=== PATIENT | female | born 1955 | race African-American/Black ===

== ENCOUNTER 2020-08-03 12:59 | Inpatient (IN) | payer MEDICARE, OTHER ==
[~2020-08-03] VITALS: Ht 157.5 cm; Wt 55.8 kg
[2020-08-03] MEDS ORDERED: ONDANSETRON HCL 4MG/2ML INJ IV STA ×2 (13:30→18:42)
[2020-08-03] MEDS ORDERED: FAMOTIDINE 20MG/2ML VIAL IV STA (13:30)
[2020-08-03 14:40] LABS: BASOPHILS % 0.6 % (0.0-2.0); EOSINOPHILS % 3.6 % (0.0-5.0); HEMATOCRIT. 30.3 % (36.0-48.0); HEMOGLOBIN. 10.3 g/dL (12.0-16.0); LYMPHOCYTES % 23.6 % (20.0-50.0); MEAN CORPUSCULAR HEMOGLOBIN 32.6 pg (28.0-32.0); MEAN CORPUSCULAR VOLUME 95.5 fL (81.0-99.0); MEAN PLATELET VOLUME 6.9 fl (7.4-10.4); MONOCYTES % 8.1 % (2.0-8.0); NEUTROPHILS % 64.1 % (40.0-76.0); PLATELET 434 x1000/uL (130-400); RED BLOOD CELL COUNT 3.17 mill/uL (4.2-5.4); RED CELL DISTRIBUTION WIDTH 20.3 % (11.6-14.6)
[2020-08-03 14:45] LABS: CHLORIDE 110 mEq/L (98-107)
[2020-08-03 14:49] LABS: ETHANOL BLOOD 121 mg/dL
[2020-08-03 14:50] LABS: PROTHROMBIN TIME 10.8 sec (9.6-11.0)
[2020-08-03] MEDS ORDERED: POTASSIUM CHLORIDE 20MEQ TABLET SR PO ONE (15:30)
[2020-08-03] MEDS ORDERED: MORPHINE SULFATE 4 MG/ML CPJ (NOT FOR IM USE) IV STA (18:42)
[2020-08-03] MEDS ORDERED: POTASSIUM CHLORIDE INJ 40 MEQ in DEXT 5% WATER 250 ML IV ONE (18:45)
[2020-08-03 21:30] VITALS: BP 183/95
[2020-08-04] VITALS (7 sets, daily range): BP systolic 106–193; BP diastolic 68–105
[2020-08-04] MEDS: ATORVASTATIN CALCIUM 40MG TABLET PO SCH ×2 (00:14→20:50)
[2020-08-04] MEDS: AMLODIPINE 10MG TABLET PO SCH ×2 (00:15→09:00)
[2020-08-04] MEDS: MORPHINE SULFATE 2 MG/ML CPJ (NOT FOR IM USE) IV PRN ×4 (00:16→20:49)
[2020-08-04] MEDS: METOPROLOL TARTRATE 50MG TABLET PO SCH ×3 (03:09→20:50)
[2020-08-04] MEDS ORDERED: FURO-152 PO (06:19)
[2020-08-04] MEDS ORDERED: TOPUD PO (06:19)
[2020-08-04] MEDS ORDERED: ATEN-42 PO (06:19)
[2020-08-04] MEDS ORDERED: LIP40 PO (06:19)
[2020-08-04] MEDS ORDERED: ASPI-1497 PO (06:19)
[2020-08-04 06:36] LABS: CHLORIDE 110 mEq/L (98-107)
[2020-08-04 06:38] LABS: BASOPHILS % 0.4 % (0.0-2.0); EOSINOPHILS % 2.4 % (0.0-5.0); HEMATOCRIT. 29.2 % (36.0-48.0); HEMOGLOBIN. 9.8 g/dL (12.0-16.0); LYMPHOCYTES % 29.7 % (20.0-50.0); MEAN CORPUSCULAR HEMOGLOBIN 32.3 pg (28.0-32.0); MEAN CORPUSCULAR VOLUME 96.6 fL (81.0-99.0); MEAN PLATELET VOLUME 7.4 fl (7.4-10.4); MONOCYTES % 10.4 % (2.0-8.0); NEUTROPHILS % 57.1 % (40.0-76.0); PLATELET 378 x1000/uL (130-400); RED BLOOD CELL COUNT 3.02 mill/uL (4.2-5.4)
[2020-08-04] MEDS: FAMOTIDINE 20MG TABLET PO SCH ×2 (09:02→20:50)
[2020-08-04] MEDS: THIAMINE HCL 100MG TABLET PO SCH (09:10)
[2020-08-04] MEDS ORDERED: LORAZEPAM 2MG/ML CPJ IV PRN (15:15)
[2020-08-05] VITALS: BP 167/96
[2020-08-05 04:00] VITALS: BP 155/87
[2020-08-05 06:01] LABS: BASOPHILS % 0.2 % (0.0-2.0); EOSINOPHILS % 2.9 % (0.0-5.0); HEMATOCRIT. 29.2 % (36.0-48.0); HEMOGLOBIN. 9.8 g/dL (12.0-16.0); LYMPHOCYTES % 30.4 % (20.0-50.0); MEAN CORPUSCULAR HEMOGLOBIN 32.5 pg (28.0-32.0); MEAN CORPUSCULAR VOLUME 96.6 fL (81.0-99.0); MEAN PLATELET VOLUME 7.5 fl (7.4-10.4); MONOCYTES % 9.3 % (2.0-8.0); NEUTROPHILS % 57.2 % (40.0-76.0); PLATELET 377 x1000/uL (130-400); RED BLOOD CELL COUNT 3.02 mill/uL (4.2-5.4); RED CELL DISTRIBUTION WIDTH 20.2 % (11.6-14.6)
[2020-08-05 06:16] LABS: CHLORIDE 104 mEq/L (98-107)
[2020-08-05 06:24] LABS: TOTAL IRON BINDING CAPACITY 278 ug/dL (250-450)
[2020-08-05 07:20] LABS: VITAMIN B12 SERUM 411 pg/mL (211-911)
[2020-08-05] MEDS: MORPHINE SULFATE 2 MG/ML CPJ (NOT FOR IM USE) IV PRN ×2 (07:43→12:13)
[2020-08-05 07:58] VITALS: BP 163/78
[2020-08-05] MEDS: THIAMINE HCL 100MG TABLET PO SCH (09:33)
[2020-08-05] MEDS: FAMOTIDINE 20MG TABLET PO SCH ×2 (09:33→20:24)
[2020-08-05] MEDS: ATORVASTATIN CALCIUM 40MG TABLET PO SCH (09:33)
[2020-08-05] MEDS: AMLODIPINE 10MG TABLET PO SCH (09:34)
[2020-08-05] MEDS: METOPROLOL TARTRATE 50MG TABLET PO SCH ×2 (09:34→20:24)
[2020-08-05 11:55] VITALS: BP 139/76
[2020-08-05] MEDS: FOLIC ACID 1MG TABLET PO SCH (12:09)
[2020-08-05 16:10] VITALS: BP 125/65
[2020-08-05] MEDS: BISACODYL 5MG TABLET PO SCH ×2 (16:10→20:23)
[2020-08-05] MEDS: METOCLOPRAMIDE HCL 10MG/2ML VIAL IV SCH ×2 (16:10→20:23)
[2020-08-05] MEDS: SORBITOL 70% SOLN 30ML PO SCH ×2 (16:10→21:07)
[2020-08-05 20:00] VITALS: BP 142/84
[2020-08-06] VITALS (10 sets, daily range): BP systolic 89–147; BP diastolic 48–97
[2020-08-06] MEDS: BISACODYL 5MG TABLET PO SCH ×2 (00:49→03:54)
[2020-08-06] MEDS: METOCLOPRAMIDE HCL 10MG/2ML VIAL IV SCH ×2 (00:49→03:54)
[2020-08-06] MEDS: SORBITOL 70% SOLN 30ML PO SCH ×2 (00:50→03:54)
[2020-08-06 06:11] LABS: PROTHROMBIN TIME 10.9 sec (9.6-11.0)
[2020-08-06 06:32] LABS: BASOPHILS % 0.4 % (0.0-2.0); HEMOGLOBIN. 12.6 g/dL (12.0-16.0); LYMPHOCYTES % 21.9 % (20.0-50.0); MEAN CORPUSCULAR HEMOGLOBIN 32.6 pg (28.0-32.0); MEAN CORPUSCULAR VOLUME 95.9 fL (81.0-99.0); MEAN PLATELET VOLUME 7.8 fl (7.4-10.4); MONOCYTES % 8.6 % (2.0-8.0); NEUTROPHILS % 68.1 % (40.0-76.0); PLATELET 450 x1000/uL (130-400); RED BLOOD CELL COUNT 3.86 mill/uL (4.2-5.4); RED CELL DISTRIBUTION WIDTH 19.9 % (11.6-14.6)
[2020-08-06] MEDS ORDERED: HYDROMORPHONE HCL/PF 2MG/ML CPJ IV SCH (08:45)
[2020-08-06] MEDS: AMLODIPINE 10MG TABLET PO SCH (09:00)
[2020-08-06] MEDS: METOPROLOL TARTRATE 50MG TABLET PO SCH ×2 (09:00→20:55)
[2020-08-06] MEDS ORDERED: SODIUM CHLORIDE 0.9% 1,000 ML IV ONE (09:00)
[2020-08-06] MEDS: FOLIC ACID 1MG TABLET PO SCH (09:00)
[2020-08-06] MEDS: FAMOTIDINE 20MG TABLET PO SCH ×2 (09:00→20:49)
[2020-08-06] MEDS: THIAMINE HCL 100MG TABLET PO SCH (09:00)
[2020-08-06] MEDS: DEXT 5%/0.9% NACL 1,000 ML IV SCH ×2 (09:31→21:36)
[2020-08-06] MEDS ORDERED: PROPOFOL 200MG/20ML VIAL IV ONE (10:47)
[2020-08-06] MEDS ORDERED: DIAZEPAM 5 MG/ML 2ML CPJ IV ONE (10:53)
[2020-08-06] MEDS ORDERED: MIDAZOLAM HCL 5 MG/5 ML VIAL IV ONE (10:58)
[2020-08-06] MEDS ORDERED: FENTANYL CITRATE/PF 50MCG/ML 2ML VIAL ONE (10:58)
[2020-08-06] MEDS ORDERED: MIDAZOLAM HCL 5 MG/5 ML VIAL ONE (10:59)
[2020-08-06] MEDS ORDERED: LABETALOL 5MG/ML SYR 20 MG/4 ML SYRINGE IV PRN (11:00)
[2020-08-06] MEDS ORDERED: HYDROMORPHONE HCL/PF 2MG/ML CPJ IV PRN (11:00)
[2020-08-06] MEDS ORDERED: DIAZEPAM 5 MG/ML 2ML CPJ ONE (11:00)
[2020-08-06] MEDS ORDERED: ONDANSETRON HCL 4MG/2ML INJ IV PRN (11:00)
[2020-08-06] MEDS ORDERED: MEPERIDINE HCL/PF 25MG/ML CPJ IV PRN (11:00)
[2020-08-06] MEDS: ATORVASTATIN CALCIUM 40MG TABLET PO SCH (20:49)
[2020-08-06] MEDS: ACETAMINOPHEN 325MG TABLET PO PRN (21:35)
[2020-08-07 00:02] VITALS: BP 128/71
[2020-08-07 04:00] VITALS: BP 146/80
[2020-08-07 08:00] VITALS: BP 155/97
[2020-08-07] MEDS: FOLIC ACID 1MG TABLET PO SCH (08:20)
[2020-08-07] MEDS: AMLODIPINE 10MG TABLET PO SCH (08:20)
[2020-08-07] MEDS: METOPROLOL TARTRATE 50MG TABLET PO SCH ×2 (08:21→21:37)
[2020-08-07] MEDS: FAMOTIDINE 20MG TABLET PO SCH (08:21)
[2020-08-07] MEDS: THIAMINE HCL 100MG TABLET PO SCH (08:21)
[2020-08-07] MEDS: MORPHINE SULFATE 2 MG/ML CPJ (NOT FOR IM USE) IV PRN ×2 (08:23→21:38)
[2020-08-07 08:58] LABS: BASOPHILS % 0.2 % (0.0-2.0); HEMATOCRIT. 30.1 % (36.0-48.0); LYMPHOCYTES % 27.3 % (20.0-50.0); MEAN CORPUSCULAR HEMOGLOBIN 32.4 pg (28.0-32.0); MEAN CORPUSCULAR VOLUME 97.1 fL (81.0-99.0); MEAN PLATELET VOLUME 7.4 fl (7.4-10.4); MONOCYTES % 9.5 % (2.0-8.0); PLATELET 377 x1000/uL (130-400); RED CELL DISTRIBUTION WIDTH 19.4 % (11.6-14.6)
[2020-08-07 09:06] LABS: CHLORIDE 114 mEq/L (98-107)
[2020-08-07] MEDS: ACETAMINOPHEN 325MG TABLET PO PRN (10:50)
[2020-08-07 12:00] VITALS: BP 129/76
[2020-08-07] MEDS ORDERED: POTASSIUM CHLORIDE 20MEQ TABLET SR PO SCH (12:30)
[2020-08-07] MEDS: DEXT 5%/0.9% NACL 1,000 ML IV SCH (13:36)
[2020-08-07 16:00] VITALS: BP 136/81
[2020-08-07 16:05] LABS: FERRITIN 102 ng/mL (10-291)
[2020-08-07] MEDS ORDERED: GADOTERATE MEGLUMINE 5 MMOL/10 ML VIAL IV ONE (17:26)
[2020-08-07 20:28] VITALS: BP 150/91
[2020-08-07] MEDS: ATORVASTATIN CALCIUM 40MG TABLET PO SCH (21:38)
[2020-08-08] MEDS: DEXT 5%/0.9% NACL 1,000 ML IV SCH ×2 (00:34→13:52)
[2020-08-08 00:40] VITALS: BP 179/78
[2020-08-08 04:00] VITALS: BP 157/86
[2020-08-08] MEDS: MORPHINE SULFATE 2 MG/ML CPJ (NOT FOR IM USE) IV PRN ×2 (05:08→15:56)
[2020-08-08 06:11] LABS: BASOPHILS % 0.3 % (0.0-2.0); EOSINOPHILS % 3.2 % (0.0-5.0); HEMATOCRIT. 35.9 % (36.0-48.0); HEMOGLOBIN. 11.6 g/dL (12.0-16.0); LYMPHOCYTES % 22.2 % (20.0-50.0); MEAN CORPUSCULAR HEMOGLOBIN 32.5 pg (28.0-32.0); MEAN CORPUSCULAR VOLUME 100.3 fL (81.0-99.0); MEAN PLATELET VOLUME 7.8 fl (7.4-10.4); MONOCYTES % 7.4 % (2.0-8.0); NEUTROPHILS % 66.9 % (40.0-76.0); PLATELET 303 x1000/uL (130-400); RED BLOOD CELL COUNT 3.58 mill/uL (4.2-5.4); RED CELL DISTRIBUTION WIDTH 19.7 % (11.6-14.6)
[2020-08-08] MEDS: OMEPRAZOLE 20MG CAPSULE EXTENDED RELEASE PO SCH (06:24)
[2020-08-08 06:39] LABS: CHLORIDE 107 mEq/L (98-107)
[2020-08-08 08:00] VITALS: BP_SYST 138; BP_SYST 152; BP_DIAS 74; BP_DIAS 77
[2020-08-08] MEDS: ACETAMINOPHEN 325MG TABLET PO PRN (08:01)
[2020-08-08] MEDS: FOLIC ACID 1MG TABLET PO SCH (09:17)
[2020-08-08] MEDS: METOPROLOL TARTRATE 50MG TABLET PO SCH ×2 (09:17→21:00)
[2020-08-08] MEDS: AMLODIPINE 10MG TABLET PO SCH (09:17)
[2020-08-08] MEDS: THIAMINE HCL 100MG TABLET PO SCH (09:17)
[2020-08-08 12:00] VITALS: BP 129/70
[2020-08-08 16:00] VITALS: BP 135/71
[2020-08-08] MEDS ORDERED: LIDOCAINE HCL 1% 20ML VIAL (Pyxis) INJ ONE (19:23)
[2020-08-08] MEDS ORDERED: POLYMYXIN B SULFATE 500000 UNITS/VIAL ONE (19:23)
[2020-08-08] MEDS ORDERED: SODIUM CHLORIDE 0.9% INJ 10ML FLUSH IVF ONE (19:23)
[2020-08-08] MEDS ORDERED: BUPIVACAINE HCL/PF 0.5% (5MG/ML) 10ML ONE (19:23)
[2020-08-08] MEDS ORDERED: FENTANYL CITRATE/PF 50MCG/ML 2ML VIAL ONE ×3 (19:27→20:11)
[2020-08-08] MEDS ORDERED: ROCURONIUM BROMIDE 10MG/ML VIAL 5ML IV ONE (19:27)
[2020-08-08] MEDS ORDERED: PROPOFOL 200MG/20ML VIAL IV ONE (19:28)
[2020-08-08] MEDS ORDERED: MIDAZOLAM HCL 2 MG/2 ML VIAL ONE (19:28)
[2020-08-08] MEDS ORDERED: NEOSTIGMINE METHYLSULFATE 1MG/ML 10 ML VIAL ONE (19:28)
[2020-08-08] MEDS ORDERED: GLYCOPYRROLATE 0.2 MG/ML 2ML VIAL ONE ×2 (19:28→21:23)
[2020-08-08] MEDS ORDERED: DEXAMETHASONE 4MG/ML 1ML VIAL ONE (19:56)
[2020-08-08] MEDS ORDERED: ONDANSETRON HCL 4MG/2ML INJ ONE (19:56)
[2020-08-08] MEDS ORDERED: LABETALOL 5MG/ML SYR 20 MG/4 ML SYRINGE IV PRN (20:00)
[2020-08-08] MEDS ORDERED: ONDANSETRON HCL 4MG/2ML INJ IV PRN (20:00)
[2020-08-08] MEDS ORDERED: MEPERIDINE HCL/PF 25MG/ML CPJ IV PRN (20:00)
[2020-08-08] MEDS ORDERED: METRONIDAZOLE 500 MG PREMIX 100 ML IV ONE (20:02)
[2020-08-08] MEDS ORDERED: LEVOFLOXACIN 500MG PREMIX 100 ML IV ONE (20:02)
[2020-08-08] MEDS ORDERED: HYDROMORPHONE HCL/PF 2MG/ML (OR) ONE (20:05)
[2020-08-08] MEDS: ATORVASTATIN CALCIUM 40MG TABLET PO SCH (21:00)
[2020-08-08] MEDS ORDERED: NALOXONE HCL 0.4 MG/ML 1ML VIAL IV PRN (22:00)
[2020-08-08] MEDS ORDERED: NALOXONE HCL 0.4 MG/ML 1ML VIAL ONE (22:11)
[2020-08-08 22:58] LABS: BG BASE EXCESS -3.2 mmol/L (-2.0-2.0); BG CARBOXYHEMOGLOBIN 0.3 % (0.5-1.5); BG DEOXYHEMOGLOBIN 0.9 % (0.0-5.0); BG FRACTION INSPIRED OXYGEN 50; BG HCO3 ACT 21.2 mmol/L (22.0-26.0); BG OXYGEN SATURATION 99.1 % (92.0-98.5); BG OXYHEMOGLOBIN 97.8 % (94.0-97.0); BG PH 7.388 (7.350-7.450); BG PO2 223.4 mmHg (75.0-100.0); BG SAMPLE SITE LEFT RADIAL; BG TOTAL HEMOGLOBIN 12.8 g/dL (12.0-18.0); BG TOTAL RESPIRATORY RATE 22 b/min; BG VENT MODE VENT - SIMV
[2020-08-09] VITALS (56 sets, daily range): BP systolic 99–160; BP diastolic 57–100
[2020-08-09 00:41] LABS: HEMATOCRIT. 32.4 % (36.0-48.0); HEMOGLOBIN. 10.8 g/dL (12.0-16.0); MEAN CORPUSCULAR HEMOGLOBIN 32.2 pg (28.0-32.0); MEAN CORPUSCULAR VOLUME 96.1 fL (81.0-99.0); MEAN PLATELET VOLUME 7.1 fl (7.4-10.4); PLATELET 376 x1000/uL (130-400); RED BLOOD CELL COUNT 3.37 mill/uL (4.2-5.4); RED CELL DISTRIBUTION WIDTH 18.7 % (11.6-14.6)
[2020-08-09 00:49] LABS: CHLORIDE 107 mEq/L (98-107)
[2020-08-09] MEDS: HYDROMORPHONE HCL/PF 2MG/ML CPJ IV PRN ×2 (01:04→02:18)
[2020-08-09 01:52] LABS: PLATELET ESTIMATE NORMAL
[2020-08-09] MEDS ORDERED: KCL 20MEQ/100ML PREMIX 100 ML IV SCH (02:00)
[2020-08-09] MEDS: DEXT 5%/0.9% NACL 1,000 ML IV SCH ×3 (02:44→23:17)
[2020-08-09] MEDS ORDERED: MAGNESIUM 2 G PREMIX 50 ML IV SCH ×2 (03:00→12:00)
[2020-08-09] MEDS ORDERED: PROPOFOL 10MG/ML 100ML 100 ML IV PRN (04:30)
[2020-08-09 05:25] LABS: HEMATOCRIT. 31.2 % (36.0-48.0); HEMOGLOBIN. 10.2 g/dL (12.0-16.0); MEAN CORPUSCULAR HEMOGLOBIN 31.8 pg (28.0-32.0); MEAN CORPUSCULAR VOLUME 97.4 fL (81.0-99.0); MEAN PLATELET VOLUME 7.9 fl (7.4-10.4); PLATELET 333 x1000/uL (130-400); RED CELL DISTRIBUTION WIDTH 18.6 % (11.6-14.6)
[2020-08-09 05:33] LABS: CHLORIDE 106 mEq/L (98-107)
[2020-08-09] MEDS: METOCLOPRAMIDE HCL 10MG/2ML VIAL IV SCH ×5 (05:46→23:17)
[2020-08-09] MEDS: OMEPRAZOLE 20MG CAPSULE EXTENDED RELEASE PO SCH (06:30)
[2020-08-09] MEDS: BISACODYL 10MG SUPP PR SCH (08:38)
[2020-08-09] MEDS: MORPHINE SULFATE 2 MG/ML CPJ (NOT FOR IM USE) IV PRN ×3 (08:39→20:42)
[2020-08-09] MEDS: THIAMINE HCL 100MG TABLET PO SCH (09:00)
[2020-08-09] MEDS: AMLODIPINE 10MG TABLET PO SCH (09:00)
[2020-08-09] MEDS: FOLIC ACID 1MG TABLET PO SCH (09:00)
[2020-08-09] MEDS: METOPROLOL TARTRATE 50MG TABLET PO SCH ×2 (09:00→20:26)
[2020-08-09 09:43] LABS: BG BASE EXCESS -3.3 mmol/L (-2.0-2.0); BG CARBOXYHEMOGLOBIN 0.3 % (0.5-1.5); BG DEOXYHEMOGLOBIN 1.1 % (0.0-5.0); BG FRACTION INSPIRED OXYGEN 30; BG HCO3 ACT 20.2 mmol/L (22.0-26.0); BG METHEMOGLOBIN 0.4 % (0.0-1.5); BG OXYGEN SATURATION 98.9 % (92.0-98.5); BG OXYHEMOGLOBIN 98.2 % (94.0-97.0); BG PCO2 31.4 mmHg (35.0-45.0); BG PH 7.427 (7.350-7.450); BG PO2 142.3 mmHg (75.0-100.0); BG SAMPLE SITE RIGHT RADIAL; BG VENT MODE VENT - SIMV
[2020-08-09 10:53] LABS: BG BASE EXCESS -2.1 mmol/L (-2.0-2.0); BG CARBOXYHEMOGLOBIN 0.3 % (0.5-1.5); BG DEOXYHEMOGLOBIN 1.1 % (0.0-5.0); BG FRACTION INSPIRED OXYGEN 30; BG HCO3 ACT 21.3 mmol/L (22.0-26.0); BG METHEMOGLOBIN 0.1 % (0.0-1.5); BG OXYGEN SATURATION 98.9 % (92.0-98.5); BG OXYHEMOGLOBIN 98.5 % (94.0-97.0); BG PCO2 31.7 mmHg (35.0-45.0); BG PH 7.445 (7.350-7.450); BG PO2 152.5 mmHg (75.0-100.0); BG SAMPLE SITE RIGHT RADIAL; BG VENT MODE VENT - CPAP
[2020-08-09 12:24] LABS: PLATELET ESTIMATE NORMAL
[2020-08-09] MEDS: IPRATROPIUM/ALBUTEROL 0.5-3(2.5)MG/3ML NEB HHN SCH ×2 (14:20→20:52)
[2020-08-09] MEDS: ATORVASTATIN CALCIUM 40MG TABLET PO SCH (20:25)
[2020-08-10] VITALS (25 sets, daily range): BP systolic 103–153; BP diastolic 59–92
[2020-08-10] MEDS: IPRATROPIUM/ALBUTEROL 0.5-3(2.5)MG/3ML NEB HHN SCH ×4 (01:36→20:47)
[2020-08-10] MEDS: MORPHINE SULFATE 2 MG/ML CPJ (NOT FOR IM USE) IV PRN ×4 (02:14→16:09)
[2020-08-10] MEDS: METOCLOPRAMIDE HCL 10MG/2ML VIAL IV SCH ×4 (05:15→20:39)
[2020-08-10 05:58] LABS: HEMATOCRIT. 25.3 % (36.0-48.0); HEMOGLOBIN. 8.5 g/dL (12.0-16.0); MEAN CORPUSCULAR HEMOGLOBIN 31.9 pg (28.0-32.0); MEAN CORPUSCULAR VOLUME 95.5 fL (81.0-99.0); PLATELET 282 x1000/uL (130-400); RED BLOOD CELL COUNT 2.65 mill/uL (4.2-5.4)
[2020-08-10 06:00] LABS: CHLORIDE 111 mEq/L (98-107)
[2020-08-10] MEDS: OMEPRAZOLE 20MG CAPSULE EXTENDED RELEASE PO SCH (06:44)
[2020-08-10] MEDS: DEXT 5%/0.9% NACL 1,000 ML IV SCH ×3 (06:44→20:39)
[2020-08-10] MEDS: NICOTINE 14MG PATCH TD SCH (12:04)
[2020-08-10] MEDS: FOLIC ACID 1MG TABLET PO SCH (12:31)
[2020-08-10] MEDS: METOPROLOL TARTRATE 50MG TABLET PO SCH ×2 (12:32→20:38)
[2020-08-10] MEDS: THIAMINE HCL 100MG TABLET PO SCH (12:32)
[2020-08-10] MEDS: AMLODIPINE 10MG TABLET PO SCH (12:33)
[2020-08-10 12:58] LABS: PLATELET ESTIMATE NORMAL
[2020-08-10] MEDS: ATORVASTATIN CALCIUM 40MG TABLET PO SCH (20:38)
[2020-08-11] VITALS: BP 133/66
[2020-08-11] MEDS: MORPHINE SULFATE 2 MG/ML CPJ (NOT FOR IM USE) IV PRN ×5 (00:41→21:52)
[2020-08-11] MEDS: IPRATROPIUM/ALBUTEROL 0.5-3(2.5)MG/3ML NEB HHN SCH ×4 (01:57→21:27)
[2020-08-11 04:00] VITALS: BP 116/61
[2020-08-11] MEDS: OMEPRAZOLE 20MG CAPSULE EXTENDED RELEASE PO SCH (05:52)
[2020-08-11] MEDS: METOCLOPRAMIDE HCL 10MG/2ML VIAL IV SCH ×4 (05:52→21:52)
[2020-08-11] MEDS: DEXT 5%/0.9% NACL 1,000 ML IV SCH ×2 (05:52→21:54)
[2020-08-11 06:31] LABS: CLARITY URINE CLEAR (CLEAR); COLOR URINE YELLOW (YELLOW); KETONES URINE NEGATIVE (NEGATIVE); LEUKOCYTE ESTERASE URINE NEGATIVE (NEGATIVE); NITRITE URINE NEGATIVE (NEGATIVE); OCCULT BLOOD URINE NEGATIVE (NEGATIVE); PH URINE 6.5 (4.5-8.0); PROTEIN URINE NEGATIVE (NEGATIVE); SPECIFIC GRAVITY URINE 1.008 (1.005-1.030); UROBILINOGEN URINE 0.2 E.U./dL (0.2-1.0)
[2020-08-11 07:20] LABS: EOSINOPHILS % 0.3 % (0.0-5.0); HEMATOCRIT. 27.1 % (36.0-48.0); HEMOGLOBIN. 9.1 g/dL (12.0-16.0); LYMPHOCYTES % 11.3 % (20.0-50.0); MEAN CORPUSCULAR HEMOGLOBIN 32.1 pg (28.0-32.0); MEAN PLATELET VOLUME 8.2 fl (7.4-10.4); MONOCYTES % 7.6 % (2.0-8.0); NEUTROPHILS % 80.8 % (40.0-76.0); PLATELET 256 x1000/uL (130-400); RED BLOOD CELL COUNT 2.82 mill/uL (4.2-5.4); RED CELL DISTRIBUTION WIDTH 18.3 % (11.6-14.6)
[2020-08-11 07:30] LABS: CHLORIDE 109 mEq/L (98-107)
[2020-08-11 08:00] VITALS: BP 128/77
[2020-08-11] MEDS ORDERED: POTASSIUM CHLORIDE 20MEQ TABLET SR PO SCH (08:30)
[2020-08-11] MEDS: BISACODYL 10MG SUPP PR SCH (09:00)
[2020-08-11] MEDS: THIAMINE HCL 100MG TABLET PO SCH (09:24)
[2020-08-11] MEDS: FOLIC ACID 1MG TABLET PO SCH (09:24)
[2020-08-11] MEDS: AMLODIPINE 10MG TABLET PO SCH (09:24)
[2020-08-11] MEDS: NICOTINE 14MG PATCH TD SCH (09:25)
[2020-08-11] MEDS: METOPROLOL TARTRATE 50MG TABLET PO SCH ×2 (09:25→21:52)
[2020-08-11] MEDS ORDERED: POTASSIUM CHLORIDE INJ 40 MEQ in DEXT 5% WATER 250 ML IV SCH (10:00)
[2020-08-11 12:00] VITALS: BP 124/80
[2020-08-11] MEDS ORDERED: POTASSIUM CHLORIDE 20MEQ TABLET SR PO NR (17:00)
[2020-08-11 20:00] VITALS: BP 147/93
[2020-08-11] MEDS: ATORVASTATIN CALCIUM 40MG TABLET PO SCH (21:52)
[2020-08-12] VITALS: BP 123/80
[2020-08-12] MEDS: IPRATROPIUM/ALBUTEROL 0.5-3(2.5)MG/3ML NEB HHN SCH ×4 (01:27→21:14)
[2020-08-12 04:00] VITALS: BP 136/77
[2020-08-12] MEDS: MORPHINE SULFATE 2 MG/ML CPJ (NOT FOR IM USE) IV PRN ×3 (04:38→15:45)
[2020-08-12] MEDS: OMEPRAZOLE 20MG CAPSULE EXTENDED RELEASE PO SCH (05:44)
[2020-08-12] MEDS: METOCLOPRAMIDE HCL 10MG/2ML VIAL IV SCH ×4 (06:00→23:19)
[2020-08-12 06:28] LABS: BASOPHILS % 0.2 % (0.0-2.0); EOSINOPHILS % 1.4 % (0.0-5.0); HEMATOCRIT. 30.2 % (36.0-48.0); HEMOGLOBIN. 10.2 g/dL (12.0-16.0); LYMPHOCYTES % 11.9 % (20.0-50.0); MEAN CORPUSCULAR HEMOGLOBIN 31.9 pg (28.0-32.0); MEAN CORPUSCULAR VOLUME 94.8 fL (81.0-99.0); MEAN PLATELET VOLUME 8.3 fl (7.4-10.4); MONOCYTES % 9.6 % (2.0-8.0); NEUTROPHILS % 76.9 % (40.0-76.0); PLATELET 346 x1000/uL (130-400); RED BLOOD CELL COUNT 3.19 mill/uL (4.2-5.4)
[2020-08-12 06:36] LABS: CHLORIDE 106 mEq/L (98-107)
[2020-08-12 08:00] VITALS: BP 147/98
[2020-08-12] MEDS ORDERED: LIDOCAINE HCL 1% 20ML VIAL (Pyxis) INJ ONE (08:03)
[2020-08-12 10:47] LABS: PHOSPHORUS 3.1 mg/dL (2.5-4.9)
[2020-08-12] MEDS: NICOTINE 14MG PATCH TD SCH (10:50)
[2020-08-12] MEDS: FOLIC ACID 1MG TABLET PO SCH (10:50)
[2020-08-12] MEDS: THIAMINE HCL 100MG TABLET PO SCH (10:50)
[2020-08-12] MEDS: BISACODYL 10MG SUPP PR SCH (10:51)
[2020-08-12] MEDS: DEXT 5%/0.9% NACL 1,000 ML IV SCH ×2 (10:51→21:27)
[2020-08-12] MEDS: METOPROLOL TARTRATE 50MG TABLET PO SCH ×2 (10:51→20:52)
[2020-08-12] MEDS: AMLODIPINE 10MG TABLET PO SCH (10:51)
[2020-08-12 12:00] VITALS: BP 127/106
[2020-08-12 12:39] LABS: INR 1.1; PARTIAL THROMBOPLASTIN TIME 31.8 sec (23.4-31.0); PROTHROMBIN TIME 11.5 sec (9.6-11.0)
[2020-08-12] MEDS ORDERED: MAGNESIUM 4 G PREMIX 100 ML IV SCH (14:00)
[2020-08-12 20:00] VITALS: BP 150/81
[2020-08-12] MEDS: ATORVASTATIN CALCIUM 40MG TABLET PO SCH (20:52)
[2020-08-12] MEDS ORDERED: TOTAL PARENTERAL NUTRITION 1,400 ML IV SCH (21:00)
[2020-08-12] MEDS: BLOOD SUGAR DIAGNOSTIC STRIP TEST SCH (23:19)
[2020-08-13] VITALS: BP 152/79
[2020-08-13] MEDS: IPRATROPIUM/ALBUTEROL 0.5-3(2.5)MG/3ML NEB HHN SCH ×4 (01:22→21:13)
[2020-08-13] MEDS: MORPHINE SULFATE 2 MG/ML CPJ (NOT FOR IM USE) IV PRN ×3 (03:56→20:38)
[2020-08-13 04:00] VITALS: BP 145/80
[2020-08-13] MEDS: BLOOD SUGAR DIAGNOSTIC STRIP TEST SCH ×4 (05:49→17:56)
[2020-08-13] MEDS: METOCLOPRAMIDE HCL 10MG/2ML VIAL IV SCH ×3 (05:49→17:54)
[2020-08-13 06:34] LABS: BASOPHILS % 0.4 % (0.0-2.0); EOSINOPHILS % 2.4 % (0.0-5.0); HEMATOCRIT. 28.1 % (36.0-48.0); HEMOGLOBIN. 9.5 g/dL (12.0-16.0); LYMPHOCYTES % 12.3 % (20.0-50.0); MEAN CORPUSCULAR HEMOGLOBIN 32.3 pg (28.0-32.0); MEAN PLATELET VOLUME 8.2 fl (7.4-10.4); MONOCYTES % 11.9 % (2.0-8.0); PLATELET 283 x1000/uL (130-400); RED BLOOD CELL COUNT 2.95 mill/uL (4.2-5.4)
[2020-08-13 06:42] LABS: CHLORIDE 101 mEq/L (98-107)
[2020-08-13 08:00] VITALS: BP 131/62
[2020-08-13] MEDS: NICOTINE 14MG PATCH TD SCH (08:44)
[2020-08-13] MEDS: BISACODYL 10MG SUPP PR SCH (08:44)
[2020-08-13] MEDS: FOLIC ACID 1MG TABLET PO SCH (08:44)
[2020-08-13] MEDS: AMLODIPINE 10MG TABLET PO SCH (08:45)
[2020-08-13] MEDS: OMEPRAZOLE 20MG CAPSULE EXTENDED RELEASE PO SCH (08:45)
[2020-08-13] MEDS: THIAMINE HCL 100MG TABLET PO SCH (08:45)
[2020-08-13] MEDS: METOPROLOL TARTRATE 50MG TABLET PO SCH ×2 (08:45→20:38)
[2020-08-13 12:00] VITALS: BP 131/62
[2020-08-13] MEDS ORDERED: POTASSIUM CHLORIDE INJ 40 MEQ in DEXT 5% WATER 250 ML IV NR (15:30)
[2020-08-13 16:00] VITALS: BP 122/74
[2020-08-13] MEDS: DEXT 5%/0.9% NACL 1,000 ML IV SCH (16:42)
[2020-08-13 20:00] VITALS: BP 149/74
[2020-08-13] MEDS: ATORVASTATIN CALCIUM 40MG TABLET PO SCH (20:38)
[2020-08-13] MEDS ORDERED: TOTAL PARENTERAL NUTRITION 1,800 ML IV SCH (21:00)
[2020-08-13] MEDS ORDERED: DEXT 5%/0.9% NACL 1,000 ML IV SCH (21:00)
[2020-08-14] VITALS: BP 149/76
[2020-08-14] MEDS: METOCLOPRAMIDE HCL 10MG/2ML VIAL IV SCH ×5 (00:50→23:54)
[2020-08-14] MEDS: BLOOD SUGAR DIAGNOSTIC STRIP TEST SCH ×4 (00:55→17:20)
[2020-08-14] MEDS: IPRATROPIUM/ALBUTEROL 0.5-3(2.5)MG/3ML NEB HHN SCH ×4 (01:00→21:21)
[2020-08-14] MEDS: MORPHINE SULFATE 2 MG/ML CPJ (NOT FOR IM USE) IV PRN ×4 (02:53→20:36)
[2020-08-14 04:00] VITALS: BP 134/90
[2020-08-14] MEDS: OMEPRAZOLE 20MG CAPSULE EXTENDED RELEASE PO SCH (06:13)
[2020-08-14 06:22] LABS: HEMATOCRIT. 28.3 % (36.0-48.0); HEMOGLOBIN. 9.4 g/dL (12.0-16.0); MEAN CORPUSCULAR HEMOGLOBIN 31.7 pg (28.0-32.0); MEAN PLATELET VOLUME 8.1 fl (7.4-10.4); PLATELET 282 x1000/uL (130-400); RED BLOOD CELL COUNT 2.98 mill/uL (4.2-5.4); RED CELL DISTRIBUTION WIDTH 18.6 % (11.6-14.6)
[2020-08-14 06:53] LABS: CHLORIDE 102 mEq/L (98-107)
[2020-08-14 08:00] VITALS: BP 173/98
[2020-08-14] MEDS: NICOTINE 14MG PATCH TD SCH (09:20)
[2020-08-14] MEDS: METOPROLOL TARTRATE 50MG TABLET PO SCH ×2 (09:21→20:36)
[2020-08-14] MEDS: FOLIC ACID 1MG TABLET PO SCH (09:21)
[2020-08-14] MEDS: AMLODIPINE 10MG TABLET PO SCH (09:21)
[2020-08-14] MEDS: BISACODYL 10MG SUPP PR SCH (09:21)
[2020-08-14] MEDS: THIAMINE HCL 100MG TABLET PO SCH (09:21)
[2020-08-14] MEDS: ACETAMINOPHEN 325MG TABLET PO PRN (09:25)
[2020-08-14 12:00] VITALS: BP 131/69
[2020-08-14 13:24] LABS: PLATELET ESTIMATE NORMAL
[2020-08-14 16:00] VITALS: BP 122/54
[2020-08-14 20:00] VITALS: BP 162/78
[2020-08-14] MEDS: ATORVASTATIN CALCIUM 40MG TABLET PO SCH (20:36)
[2020-08-14] MEDS: DEXT 5%/0.9% NACL 1,000 ML IV SCH (20:38)
[2020-08-14] MEDS ORDERED: FAT EMULSIONS 500 ML IV SCH (21:00)
[2020-08-14] MEDS ORDERED: TOTAL PARENTERAL NUTRITION 2,300 ML IV SCH (21:00)
[2020-08-14] MEDS ORDERED: MORPHINE SULFATE 2 MG/ML CPJ (NOT FOR IM USE) IV NR (22:08)
[2020-08-14] MEDS: ONDANSETRON HCL 4MG/2ML INJ IV PRN (22:20)
[2020-08-14] MEDS: MORPHINE SULFATE 4 MG/ML CPJ (NOT FOR IM USE) IV PRN (23:54)
[2020-08-15] VITALS: BP 151/68
[2020-08-15] MEDS: BLOOD SUGAR DIAGNOSTIC STRIP TEST SCH ×4 (00:57→17:10)
[2020-08-15] MEDS: ONDANSETRON HCL 4MG/2ML INJ IV PRN ×2 (02:44→14:10)
[2020-08-15] MEDS: IPRATROPIUM/ALBUTEROL 0.5-3(2.5)MG/3ML NEB HHN SCH ×2 (02:48→09:00)
[2020-08-15 04:00] VITALS: BP 160/67
[2020-08-15] MEDS: METOCLOPRAMIDE HCL 10MG/2ML VIAL IV SCH ×3 (06:04→16:48)
[2020-08-15] MEDS: MORPHINE SULFATE 4 MG/ML CPJ (NOT FOR IM USE) IV PRN ×3 (06:04→20:58)
[2020-08-15] MEDS: OMEPRAZOLE 20MG CAPSULE EXTENDED RELEASE PO SCH (06:08)
[2020-08-15 06:33] LABS: BASOPHILS % 0.1 % (0.0-2.0); HEMOGLOBIN. 9.7 g/dL (12.0-16.0); LYMPHOCYTES % 9.1 % (20.0-50.0); MEAN CORPUSCULAR HEMOGLOBIN 32.9 pg (28.0-32.0); MEAN CORPUSCULAR VOLUME 95.1 fL (81.0-99.0); MEAN PLATELET VOLUME 8.4 fl (7.4-10.4); MONOCYTES % 10.9 % (2.0-8.0); NEUTROPHILS % 77.9 % (40.0-76.0); PLATELET 229 x1000/uL (130-400); RED BLOOD CELL COUNT 2.94 mill/uL (4.2-5.4); RED CELL DISTRIBUTION WIDTH 18.2 % (11.6-14.6)
[2020-08-15 06:55] LABS: CHLORIDE 100 mEq/L (98-107)
[2020-08-15 08:00] VITALS: BP 137/60
[2020-08-15] MEDS: THIAMINE HCL 100MG TABLET PO SCH (09:31)
[2020-08-15] MEDS: BISACODYL 10MG SUPP PR SCH (09:31)
[2020-08-15] MEDS: FOLIC ACID 1MG TABLET PO SCH (09:31)
[2020-08-15] MEDS: AMLODIPINE 10MG TABLET PO SCH (09:35)
[2020-08-15] MEDS: NICOTINE 14MG PATCH TD SCH (09:36)
[2020-08-15] MEDS: METOPROLOL TARTRATE 50MG TABLET PO SCH ×2 (09:36→20:45)
[2020-08-15 12:00] VITALS: BP 103/64
[2020-08-15 16:00] VITALS: BP 134/55
[2020-08-15] MEDS: ACETAMINOPHEN 325MG TABLET PO PRN (16:48)
[2020-08-15] MEDS: ATORVASTATIN CALCIUM 40MG TABLET PO SCH (20:45)
[2020-08-15] MEDS: DEXT 5%/0.9% NACL 1,000 ML IV SCH (20:46)
[2020-08-16] MEDS: IPRATROPIUM/ALBUTEROL 0.5-3(2.5)MG/3ML NEB HHN PRN (01:41)
[2020-08-16] MEDS: MORPHINE SULFATE 4 MG/ML CPJ (NOT FOR IM USE) IV PRN ×2 (02:00→14:19)
[2020-08-16] MEDS: METOCLOPRAMIDE HCL 10MG/2ML VIAL IV SCH ×4 (06:33→17:24)
[2020-08-16] MEDS: OMEPRAZOLE 20MG CAPSULE EXTENDED RELEASE PO SCH (06:33)
[2020-08-16] MEDS: BLOOD SUGAR DIAGNOSTIC STRIP TEST SCH ×4 (06:35→17:24)
[2020-08-16] MEDS: HYDROCODONE/ACETAMINOPHEN 5/325MG TABLET PO PRN ×3 (06:35→21:28)
[2020-08-16 08:00] VITALS: BP 135/63
[2020-08-16] MEDS: NICOTINE 14MG PATCH TD SCH (09:51)
[2020-08-16] MEDS: METOPROLOL TARTRATE 50MG TABLET PO SCH ×2 (09:52→21:28)
[2020-08-16] MEDS: THIAMINE HCL 100MG TABLET PO SCH (09:52)
[2020-08-16] MEDS: AMLODIPINE 10MG TABLET PO SCH (09:52)
[2020-08-16] MEDS: BISACODYL 10MG SUPP PR SCH (09:53)
[2020-08-16] MEDS: FOLIC ACID 1MG TABLET PO SCH (09:54)
[2020-08-16 12:00] VITALS: BP 127/79
[2020-08-16] MEDS: ONDANSETRON HCL 4MG/2ML INJ IV PRN (14:18)
[2020-08-16 16:00] VITALS: BP 120/72
[2020-08-16 20:00] VITALS: BP 125/72
[2020-08-16] MEDS ORDERED: TOTAL PARENTERAL NUTRITION 1,300 ML IV SCH (21:00)
[2020-08-16] MEDS: DEXT 5%/0.9% NACL 1,000 ML IV SCH (21:24)
[2020-08-16] MEDS: ATORVASTATIN CALCIUM 40MG TABLET PO SCH (21:28)
[2020-08-17] VITALS: BP 129/73
[2020-08-17] MEDS: BLOOD SUGAR DIAGNOSTIC STRIP TEST SCH ×3 (00:03→12:00)
[2020-08-17] MEDS: METOCLOPRAMIDE HCL 10MG/2ML VIAL IV SCH ×3 (00:07→11:37)
[2020-08-17 04:00] VITALS: BP 134/37
[2020-08-17] MEDS: IPRATROPIUM/ALBUTEROL 0.5-3(2.5)MG/3ML NEB HHN PRN (04:02)
[2020-08-17] MEDS: OMEPRAZOLE 20MG CAPSULE EXTENDED RELEASE PO SCH (06:15)
[2020-08-17] MEDS: HYDROCODONE/ACETAMINOPHEN 5/325MG TABLET PO PRN ×2 (06:15→11:38)
[2020-08-17 08:00] VITALS: BP 118/64
[2020-08-17] MEDS: NICOTINE 14MG PATCH TD SCH (08:57)
[2020-08-17] MEDS: AMLODIPINE 10MG TABLET PO SCH (08:58)
[2020-08-17] MEDS: METOPROLOL TARTRATE 50MG TABLET PO SCH (08:58)
[2020-08-17] MEDS: FOLIC ACID 1MG TABLET PO SCH (08:58)
[2020-08-17] MEDS: THIAMINE HCL 100MG TABLET PO SCH (08:58)
[2020-08-17] MEDS: BISACODYL 10MG SUPP PR SCH (08:59)
[2020-08-17 12:00] VITALS: BP 120/70
[2020-08-17] MEDS ORDERED: HYDR-4001 PO (13:49)
[2020-08-17] MEDS ORDERED: AMLO10TA80 PO (13:49)
[2020-08-17] MEDS ORDERED: OMEP20CA14 PO (13:49)
[2020-08-17 15:13] VITALS: BP 125/70
[2020-08-17] MEDS ORDERED: FAT EMULSIONS 250 ML IV SCH (21:00)
[2020-08-18] MEDS ORDERED: FAT EMULSIONS 250 ML IV SCH (02:00)
[2020-08-22] MEDS ORDERED: FAT EMULSIONS 250 ML IV SCH (02:00)
== END 2020-08-17 16:05 | disposition home or self-care (01) | DRG 230 ==
LOC: ER 12:59 → 6WST 19:29 → EDBEDREQTM 19:35 → EDBEDREQ 19:35 → ENRESERV 20:32 → MICUSO 08-09 01:58 → MICUNO 08-09 11:51 → 8WST 08-10 12:14 → MICUNO 08-10 12:24 → 8WST 08-10 13:38
PROVIDERS: ADMIT Internal Medicine; ATTEND Internal Medicine
PROC: 0DB78ZX Excision of Stomach, Pylorus, Via Natural or Artificial Opening Endoscopic, Diagnostic (ICD-10-PCS; 2020-08-06)
PROC: 0DBK8ZX Excision of Ascending Colon, Via Natural or Artificial Opening Endoscopic, Diagnostic (ICD-10-PCS; 2020-08-06)
PROC: 0DBB0ZZ Excision of Ileum, Open Approach (ICD-10-PCS; principal; 2020-08-08)
PROC: 0DTF0ZZ Resection of Right Large Intestine, Open Approach (ICD-10-PCS; 2020-08-08)
PROC: 05HY33Z Insertion of Infusion Device into Upper Vein, Percutaneous Approach (ICD-10-PCS; 2020-08-12)
PROC: B54MZZA Ultrasonography of Right Upper Extremity Veins, Guidance (ICD-10-PCS; 2020-08-12)
PROC: B51M1ZA Fluoroscopy of Right Upper Extremity Veins using Low Osmolar Contrast, Guidance (ICD-10-PCS; 2020-08-12)
DX: C18.0 Malignant neoplasm of cecum (principal); C77.9 Secondary and unspecified malignant neoplasm of lymph node, unspecified; I11.0 Hypertensive heart disease with heart failure; C78.6 Secondary malignant neoplasm of retroperitoneum and peritoneum; E87.8 Other disorders of electrolyte and fluid balance, not elsewhere classified; I50.9 Heart failure, unspecified; E44.1 Mild protein-calorie malnutrition; E83.42 Hypomagnesemia; S42.292A Other displaced fracture of upper end of left humerus, initial encounter for closed fracture; K56.7 Ileus, unspecified; E16.2 Hypoglycemia, unspecified; J44.9 Chronic obstructive pulmonary disease, unspecified; E53.8 Deficiency of other specified B group vitamins; E87.6 Hypokalemia; E78.5 Hyperlipidemia, unspecified; F10.229 Alcohol dependence with intoxication, unspecified; F17.210 Nicotine dependence, cigarettes, uncomplicated; K74.60 Unspecified cirrhosis of liver; Z20.822 Contact with and (suspected) exposure to COVID-19; W18.39XA Other fall on same level, initial encounter; D63.8 Anemia in other chronic diseases classified elsewhere; M19.90 Unspecified osteoarthritis, unspecified site; K29.80 Duodenitis without bleeding; K29.30 Chronic superficial gastritis without bleeding; Z68.22 Body mass index [BMI] 22.0-22.9, adult; Z79.899 Other long term (current) drug therapy; Z88.0 Allergy status to penicillin; Y93.89 Activity, other specified; Y92.89 Other specified places as the place of occurrence of the external cause; Y99.8 Other external cause status
CPT/HCPCS: 36415; 36573; 36600; 71045; 73060; 74176; 74183; 80048; 80053; 80074; 80320; 81003; 82270; 82375; 82378; 82465; 82607; 82728; 82746; 82805; 82962; 83540; 83550; 83735; 83880; 84100; 84132; 84134; 84478; 84484; 85025; 85044; 86301; 86705; 86709; 86803; 86850; 86900; 86920; 87340; 87426; 88305; 88307; 88312; 88313; 93005; 93306; 94002; 94003; 94640; 97116; 97162; 97166; 97530; 99291; A4565; A9577; C1725; C1893; J1100; J1170; J1956; J2060; J2250; J2270; J2310; J2405; J2704; J2710; J2765; J3010; J3475; J3480; J3490; J7042; J7060; G0480

== ENCOUNTER 2021-03-01 19:24 | Inpatient (IN) | payer MEDICARE, OTHER ==
[~2021-03-01] VITALS: Ht 157.5 cm; Wt 40.9 kg
[~2021-03-01 19:24] MED LIST: AMLO10TA80 PO; ATEN-42 PO; HYDR-4001 PO; LIP40 PO; OMEP20CA14 PO; TOPUD PO
[2021-03-01] MEDS ORDERED: HYDROCODONE/ACETAMINOPHEN 5/325MG TABLET PO STA (20:06)
[2021-03-01 20:38] LABS: CHLORIDE 107 mEq/L (98-107)
[2021-03-01 20:48] LABS: BASOPHILS % 0.4 % (0.0-2.0); EOSINOPHILS % 2.7 % (0.0-5.0); HEMATOCRIT. 33.8 % (36.0-48.0); HEMOGLOBIN. 11.3 g/dL (12.0-16.0); LYMPHOCYTES % 30.8 % (20.0-50.0); MEAN CORPUSCULAR HEMOGLOBIN 33.7 pg (28.0-32.0); MEAN CORPUSCULAR VOLUME 100.8 fL (81.0-99.0); MEAN PLATELET VOLUME 8.2 fl (7.4-10.4); NEUTROPHILS % 59.1 % (40.0-76.0); PLATELET 303 x1000/uL (130-400); RED BLOOD CELL COUNT 3.35 mill/uL (4.2-5.4); RED CELL DISTRIBUTION WIDTH 14.1 % (11.6-14.6)
[2021-03-01] MEDS ORDERED: HYDROMORPHONE HCL 2MG TABLET PO ONE (21:45)
[2021-03-01] MEDS ORDERED: SODIUM CHLORIDE 0.9% 1,000 ML IV ONE (21:45)
[2021-03-02] MEDS ORDERED: HYDROMORPHONE HCL/PF 2MG/ML CPJ IV SCH (07:00)
[2021-03-02] MEDS ORDERED: NALOXONE HCL 0.4MG/ML VIAL IV PRN (10:30)
[2021-03-02] MEDS: DEXT 5%/0.45% NACL 1000ML 1,000 ML IV SCH ×2 (12:00→19:46)
[2021-03-02] MEDS: AMLODIPINE 10MG TABLET PO SCH (12:50)
[2021-03-02] MEDS: HYDROCODONE/ACETAMINOPHEN 5/325MG TABLET PO PRN ×2 (13:25→19:45)
[2021-03-02 16:00] VITALS: BP 121/94
[2021-03-02 16:46] VITALS: BP 121/94
[2021-03-02 20:00] VITALS: BP 132/82
[2021-03-03] VITALS: BP 133/70
[2021-03-03] MEDS: HYDROCODONE/ACETAMINOPHEN 5/325MG TABLET PO PRN ×2 (01:01→18:34)
[2021-03-03] MEDS: HYDROMORPHONE HCL/PF 2MG/ML CPJ IV PRN ×4 (06:07→22:05)
[2021-03-03 08:00] VITALS: BP 145/76
[2021-03-03] MEDS: AMLODIPINE 10MG TABLET PO SCH (09:27)
[2021-03-03] MEDS: ONDANSETRON HCL 4MG/2ML INJ IV PRN (11:34)
[2021-03-03 12:00] VITALS: BP 156/92
[2021-03-03] MEDS: DEXT 5%/0.45% NACL 1000ML 1,000 ML IV SCH (13:14)
[2021-03-03 16:00] VITALS: BP 139/95
[2021-03-03 19:30] LABS: CHLORIDE 109 mEq/L (98-107)
[2021-03-03 20:00] VITALS: BP 148/91
[2021-03-03] MEDS ORDERED: SORBITOL 70% SOLN 30ML PO NR ×3 (20:15→23:30)
[2021-03-03] MEDS ORDERED: METOCLOPRAMIDE HCL 10MG/2ML VIAL IV SCH ×2 (20:30→23:30)
[2021-03-03] MEDS ORDERED: BISACODYL 5MG TABLET PO SCH (21:00)
[2021-03-03] MEDS: SORBITOL 70% SOLN 30ML PO NR (23:07)
[2021-03-04] VITALS (7 sets, daily range): BP systolic 96–180; BP diastolic 64–111
[2021-03-04] MEDS ORDERED: BISACODYL 5MG TABLET PO SCH
[2021-03-04] MEDS: DEXT 5%/0.45% NACL 1000ML 1,000 ML IV SCH ×2 (02:55→10:44)
[2021-03-04] MEDS ORDERED: METOCLOPRAMIDE HCL 10MG/2ML VIAL IV SCH ×2 (05:00→08:00)
[2021-03-04] MEDS ORDERED: SORBITOL 70% SOLN 30ML PO NR ×2 (05:00→08:00)
[2021-03-04] MEDS: HYDROMORPHONE HCL/PF 2MG/ML CPJ IV PRN ×3 (05:27→17:24)
[2021-03-04] MEDS ORDERED: BISACODYL 5MG TABLET PO NR ×2 (05:30→08:30)
[2021-03-04 08:17] LABS: PROTHROMBIN TIME 10.9 sec (9.6-11.0)
[2021-03-04 08:22] LABS: BASOPHILS % 0.3 % (0.0-2.0); EOSINOPHILS % 1.4 % (0.0-5.0); HEMATOCRIT. 31.8 % (36.0-48.0); HEMOGLOBIN. 10.8 g/dL (12.0-16.0); MEAN CORPUSCULAR HEMOGLOBIN 34.5 pg (28.0-32.0); MONOCYTES % 8.6 % (2.0-8.0); NEUTROPHILS % 68.7 % (40.0-76.0); PLATELET 257 x1000/uL (130-400); RED BLOOD CELL COUNT 3.12 mill/uL (4.2-5.4); RED CELL DISTRIBUTION WIDTH 14.2 % (11.6-14.6)
[2021-03-04 08:38] LABS: CHLORIDE 114 mEq/L (98-107)
[2021-03-04] MEDS: AMLODIPINE 10MG TABLET PO SCH (08:45)
[2021-03-04] MEDS ORDERED: POTASSIUM CHLORIDE INJ 40 MEQ in DEXT 5% WATER 250 ML IV ONE (09:00)
[2021-03-04] MEDS: ONDANSETRON HCL 4MG/2ML INJ IV PRN (09:30)
[2021-03-04] MEDS ORDERED: KCL 20MEQ/100ML PREMIX 100 ML IV SCH (11:00)
[2021-03-04] MEDS ORDERED: FENTANYL CITRATE/PF 50MCG/ML 2ML VIAL IV NR (15:15)
[2021-03-04] MEDS ORDERED: LABETALOL 5MG/ML SYR 20 MG/4 ML SYRINGE IV PRN (15:15)
[2021-03-04] MEDS: HYDROCODONE/ACETAMINOPHEN 5/325MG TABLET PO PRN ×2 (19:37→23:44)
[2021-03-04] MEDS: SORBITOL 70% SOLN 30ML PO NR (22:15)
[2021-03-04] MEDS ORDERED: POTASSIUM CHLORIDE 20MEQ/PACKET PO NR (22:24)
[2021-03-05] VITALS: BP 155/95
[2021-03-05] MEDS: DEXT 5%/0.45% NACL 1000ML 1,000 ML IV SCH (04:14)
[2021-03-05] MEDS: HYDROCODONE/ACETAMINOPHEN 5/325MG TABLET PO PRN ×2 (04:32→09:19)
[2021-03-05 06:41] LABS: BASOPHILS % 0.4 % (0.0-2.0); EOSINOPHILS % 1.6 % (0.0-5.0); HEMATOCRIT. 31.2 % (36.0-48.0); HEMOGLOBIN. 10.5 g/dL (12.0-16.0); LYMPHOCYTES % 24.7 % (20.0-50.0); MEAN CORPUSCULAR HEMOGLOBIN 34.1 pg (28.0-32.0); MEAN CORPUSCULAR VOLUME 101.6 fL (81.0-99.0); MEAN PLATELET VOLUME 7.7 fl (7.4-10.4); MONOCYTES % 9.1 % (2.0-8.0); NEUTROPHILS % 64.2 % (40.0-76.0); PLATELET 252 x1000/uL (130-400); RED BLOOD CELL COUNT 3.07 mill/uL (4.2-5.4); RED CELL DISTRIBUTION WIDTH 14.4 % (11.6-14.6)
[2021-03-05 07:10] LABS: CHLORIDE 117 mEq/L (98-107)
[2021-03-05 08:00] VITALS: BP 149/97
[2021-03-05] MEDS: AMLODIPINE 10MG TABLET PO SCH (09:19)
[2021-03-05] MEDS ORDERED: POTASSIUM CHLORIDE 20MEQ/PACKET PO NR (10:00)
[2021-03-05 12:00] VITALS: BP 146/89
[2021-03-05 12:48] VITALS: BP 146/89
== END 2021-03-05 13:35 | disposition home health service (06) | DRG 240 ==
LOC: ER 19:24 → MICUSO 23:49 → 6EST 03-02 14:26
PROVIDERS: ADMIT Internal Medicine; ATTEND Internal Medicine
PROC: 0DBF8ZX Excision of Right Large Intestine, Via Natural or Artificial Opening Endoscopic, Diagnostic (ICD-10-PCS; principal; 2021-03-04)
DX: C18.9 Malignant neoplasm of colon, unspecified (principal); N17.0 Acute kidney failure with tubular necrosis; E44.1 Mild protein-calorie malnutrition; I50.9 Heart failure, unspecified; I11.0 Hypertensive heart disease with heart failure; D64.9 Anemia, unspecified; F10.10 Alcohol abuse, uncomplicated; F17.200 Nicotine dependence, unspecified, uncomplicated; J44.9 Chronic obstructive pulmonary disease, unspecified; Z20.822 Contact with and (suspected) exposure to COVID-19; Z88.0 Allergy status to penicillin; Z79.82 Long term (current) use of aspirin; Z68.1 Body mass index [BMI] 19.9 or less, adult
CPT/HCPCS: 36415; 71045; 74176; 80048; 80053; 82378; 83880; 84484; 85025; 87426; 88305; 93005; 99285; C1893; J1170; J2405; J2765; J3480

== ENCOUNTER 2022-03-02 11:07 | Inpatient (IN) | payer MEDICARE, OTHER ==
[~2022-03-02] VITALS: Ht 165.1 cm; Wt 68.5 kg
[2022-03-02] MEDS ORDERED: IPRATROPIUM BROMIDE (0.02%) 0.5MG/2.5ML NEB HHN STA (11:12)
[2022-03-02] MEDS ORDERED: METHYLPREDNISOLONE SOD SUCC 125 MG/2 ML VIAL IV STA (11:12)
[2022-03-02] MEDS ORDERED: MAGNESIUM 2 G PREMIX 50 ML IV ONE (11:15)
[2022-03-02] MEDS: ALBUTEROL (0.083%) 2.5MG/3ML NEB HHN SCH ×3 (11:30→13:07)
[2022-03-02 12:11] LABS: BASOPHILS % 0.7 % (0.0-2.0); EOSINOPHILS % 7.6 % (0.0-5.0); HEMATOCRIT. 31.3 % (36.0-48.0); HEMOGLOBIN. 10.4 g/dL (12.0-16.0); LYMPHOCYTES % 16.1 % (20.0-50.0); MEAN CORPUSCULAR HEMOGLOBIN 33.3 pg (28.0-32.0); MEAN CORPUSCULAR VOLUME 100.3 fL (81.0-99.0); MEAN PLATELET VOLUME 7.9 fl (7.4-10.4); MONOCYTES % 10.7 % (2.0-8.0); NEUTROPHILS % 64.9 % (40.0-76.0); PLATELET 204 x1000/uL (130-400); RED BLOOD CELL COUNT 3.12 mill/uL (4.2-5.4); RED CELL DISTRIBUTION WIDTH 16.1 % (11.6-14.6)
[2022-03-02] MEDS ORDERED: ALBUTEROL (0.083%) 2.5MG/3ML NEB HHN STA (13:10)
[2022-03-02 13:56] LABS: CHLORIDE 112 mEq/L (98-107)
[2022-03-02] MEDS ORDERED: POTASSIUM CHLORIDE 20MEQ TABLET SR PO ONE (15:00)
[2022-03-02] MEDS ORDERED: DIPHENHYDRAMINE 50MG/ML VIAL IV PRN (15:15)
[2022-03-02] MEDS ORDERED: ONDANSETRON HCL 4MG/2ML INJ IV PRN (15:15)
[2022-03-02] MEDS ORDERED: IPRATROPIUM/ALBUTEROL 0.5-3(2.5)MG/3ML NEB HHN PRN (15:15)
[2022-03-02 15:46] LABS: BG BASE EXCESS -4.5 mmol/L (-2.0-2.0); BG CARBOXYHEMOGLOBIN 0.7 % (0.5-1.5); BG DEOXYHEMOGLOBIN 3.7 % (0.0-5.0); BG FRACTION INSPIRED OXYGEN 28; BG HCO3 ACT 20.3 mmol/L (22.0-26.0); BG METHEMOGLOBIN 0.3 % (0.0-1.5); BG OXYGEN SATURATION 96.3 % (92.0-98.5); BG OXYHEMOGLOBIN 95.3 % (94.0-97.0); BG PCO2 36.2 mmHg (35.0-45.0); BG PH 7.366 (7.350-7.450); BG PO2 96.9 mmHg (75.0-100.0); BG SAMPLE SITE RIGHT RADIAL; BG TOTAL HEMOGLOBIN 9.7 g/dL (12.0-18.0); BG VENT MODE NASAL CANNULA
[2022-03-02] MEDS: METHYLPREDNISOLONE SOD SUCC 40 MG/ML VIAL IV SCH ×2 (17:47→22:36)
[2022-03-02] MEDS: BENZONATATE 100MG CAPSULE PO SCH (17:48)
[2022-03-02] MEDS: ENOXAPARIN 40MG/0.4ML SYR SUBCUT SCH (17:48)
[2022-03-02] MEDS: SODIUM CHLORIDE 0.9% 1,000 ML IV SCH (17:48)
[2022-03-02] MEDS ORDERED: ALBUTEROL (0.083%) 2.5MG/3ML NEB HHN SCH (18:00)
[2022-03-02 18:14] VITALS: BP 145/76
[2022-03-02] MEDS ORDERED: ATOR20TA65 PO (19:31)
[2022-03-02] MEDS ORDERED: DULO30CA52 PO (19:31)
[2022-03-02] MEDS ORDERED: ALBU18HF2 IH (19:31)
[2022-03-02] MEDS ORDERED: DICL100G31 TP (19:31)
[2022-03-02] MEDS ORDERED: TIOT18CA3 IH (19:31)
[2022-03-02] MEDS ORDERED: BUDE6HFA INH (19:31)
[2022-03-02] MEDS ORDERED: AMLO5TAB88 PO (19:31)
[2022-03-02] MEDS ORDERED: FURO-152 PO (19:31)
[2022-03-02] MEDS ORDERED: LISI10TA26 PO (19:31)
[2022-03-02] MEDS ORDERED: ASPI-1406 PO (19:31)
[2022-03-02 20:00] VITALS: BP 160/90
[2022-03-02] MEDS: CLONIDINE 0.1MG TABLET PO PRN (22:41)
[2022-03-02] MEDS: NICOTINE 21MG PATCH TD SCH (22:42)
[2022-03-02] MEDS: ACETAMINOPHEN 325MG TABLET PO PRN (22:54)
[2022-03-03] VITALS: BP 157/84
[2022-03-03] MEDS: GUAIFENESIN-DM 200MG-20MG/10ML UDC PO PRN ×2 (02:09→10:40)
[2022-03-03] MEDS: BENZONATATE 100MG CAPSULE PO SCH ×3 (02:09→16:15)
[2022-03-03 04:00] VITALS: BP 161/74
[2022-03-03] MEDS: CLONIDINE 0.1MG TABLET PO PRN (05:31)
[2022-03-03] MEDS ORDERED: GABA-529 PO (05:35)
[2022-03-03 07:20] LABS: BASOPHILS % 0.2 % (0.0-2.0); HEMATOCRIT. 27.4 % (36.0-48.0); HEMOGLOBIN. 9.1 g/dL (12.0-16.0); LYMPHOCYTES % 7.9 % (20.0-50.0); MEAN CORPUSCULAR HEMOGLOBIN 33.1 pg (28.0-32.0); MEAN CORPUSCULAR VOLUME 99.4 fL (81.0-99.0); MEAN PLATELET VOLUME 7.7 fl (7.4-10.4); NEUTROPHILS % 88.9 % (40.0-76.0); PLATELET 171 x1000/uL (130-400); RED BLOOD CELL COUNT 2.76 mill/uL (4.2-5.4); RED CELL DISTRIBUTION WIDTH 15.2 % (11.6-14.6)
[2022-03-03 07:23] LABS: CHLORIDE 114 mEq/L (98-107)
[2022-03-03 08:00] VITALS: BP 149/77
[2022-03-03] MEDS: IPRATROPIUM BROMIDE (0.02%) 0.5MG/2.5ML NEB HHN SCH ×4 (09:17→21:51)
[2022-03-03] MEDS: METHYLPREDNISOLONE SOD SUCC 40 MG/ML VIAL IV SCH ×2 (09:21→15:49)
[2022-03-03] MEDS: SODIUM CHLORIDE 0.9% 1,000 ML IV SCH (09:21)
[2022-03-03] MEDS: ACETAMINOPHEN 325MG TABLET PO PRN (09:44)
[2022-03-03 12:00] VITALS: BP 153/79
[2022-03-03] MEDS: NICOTINE 21MG PATCH TD SCH (12:37)
[2022-03-03] MEDS ORDERED: ALBUTEROL (0.083%) 2.5MG/3ML NEB HHN PRN (15:30)
[2022-03-03] MEDS ORDERED: IPRATROPIUM BROMIDE (0.02%) 0.5MG/2.5ML NEB HHN PRN (15:30)
[2022-03-03] MEDS: PROMETHAZINE/DEXTROMETHORPHAN 6.25-15MG/5ML BOTTLE 120ML PO PRN (15:45)
[2022-03-03 16:00] VITALS: BP 122/60
[2022-03-03] MEDS: ENOXAPARIN 40MG/0.4ML SYR SUBCUT SCH (17:42)
[2022-03-03] MEDS: ALBUTEROL (0.083%) 2.5MG/3ML NEB HHN SCH ×2 (18:40→21:51)
[2022-03-03 20:00] VITALS: BP 122/65
[2022-03-04] VITALS: BP 135/73
[2022-03-04] MEDS: BENZONATATE 100MG CAPSULE PO SCH ×3 (00:15→15:41)
[2022-03-04] MEDS: IPRATROPIUM BROMIDE (0.02%) 0.5MG/2.5ML NEB HHN SCH ×5 (00:26→20:31)
[2022-03-04] MEDS: METHYLPREDNISOLONE SOD SUCC 40 MG/ML VIAL IV SCH ×3 (00:45→15:40)
[2022-03-04] MEDS: SODIUM CHLORIDE 0.9% 1,000 ML IV SCH ×2 (00:46→15:41)
[2022-03-04] MEDS: PROMETHAZINE/DEXTROMETHORPHAN 6.25-15MG/5ML BOTTLE 120ML PO PRN ×4 (00:51→23:15)
[2022-03-04 04:00] VITALS: BP 143/78
[2022-03-04] MEDS: ALBUTEROL (0.083%) 2.5MG/3ML NEB HHN SCH ×5 (04:13→20:31)
[2022-03-04 06:26] LABS: HEMOGLOBIN. 9.4 g/dL (12.0-16.0); MEAN CORPUSCULAR HEMOGLOBIN 33.4 pg (28.0-32.0); MEAN PLATELET VOLUME 7.8 fl (7.4-10.4); PLATELET 191 x1000/uL (130-400); RED CELL DISTRIBUTION WIDTH 15.6 % (11.6-14.6)
[2022-03-04 08:00] VITALS: BP 140/72
[2022-03-04] MEDS: NICOTINE 21MG PATCH TD SCH (09:21)
[2022-03-04] MEDS ORDERED: P20 MT ×2 (11:59)
[2022-03-04 12:00] VITALS: BP 128/66
[2022-03-04] MEDS: ENOXAPARIN 40MG/0.4ML SYR SUBCUT SCH (15:40)
[2022-03-04 15:47] LABS: PLATELET ESTIMATE NORMAL
[2022-03-04 16:53] VITALS: BP 119/71
[2022-03-04] MEDS ORDERED: PROM5SYR MT (18:01)
[2022-03-04] MEDS ORDERED: PROM6.254 MT ×2 (18:04)
[2022-03-04 20:00] VITALS: BP 158/84
[2022-03-05] VITALS: BP 140/69
[2022-03-05] MEDS: ALBUTEROL (0.083%) 2.5MG/3ML NEB HHN SCH ×6 (00:26→20:59)
[2022-03-05] MEDS: IPRATROPIUM BROMIDE (0.02%) 0.5MG/2.5ML NEB HHN SCH ×6 (00:26→20:58)
[2022-03-05] MEDS: METHYLPREDNISOLONE SOD SUCC 40 MG/ML VIAL IV SCH ×3 (00:47→16:22)
[2022-03-05] MEDS: BENZONATATE 100MG CAPSULE PO SCH ×3 (00:47→16:22)
[2022-03-05 04:00] VITALS: BP 153/85
[2022-03-05] MEDS: PROMETHAZINE/DEXTROMETHORPHAN 6.25-15MG/5ML BOTTLE 120ML PO PRN ×2 (07:13→19:45)
[2022-03-05 08:00] VITALS: BP 147/84
[2022-03-05] MEDS: THROAT LOZENGES-BENZOCAINE/MENTH/CETYLPYRD CL LOZENGES MM PRN ×2 (08:58→16:29)
[2022-03-05] MEDS: SODIUM CHLORIDE 0.9% 1,000 ML IV SCH (10:30)
[2022-03-05] MEDS: NICOTINE 21MG PATCH TD SCH (10:30)
[2022-03-05 12:00] VITALS: BP 137/70
[2022-03-05 16:00] VITALS: BP 143/85
[2022-03-05] MEDS: ENOXAPARIN 40MG/0.4ML SYR SUBCUT SCH (16:22)
[2022-03-06] VITALS: BP 161/97
[2022-03-06] MEDS: BENZONATATE 100MG CAPSULE PO SCH ×3 (00:21→16:23)
[2022-03-06] MEDS: METHYLPREDNISOLONE SOD SUCC 40 MG/ML VIAL IV SCH ×3 (00:21→16:23)
[2022-03-06] MEDS: ACETAMINOPHEN 325MG TABLET PO PRN (00:22)
[2022-03-06] MEDS: IPRATROPIUM BROMIDE (0.02%) 0.5MG/2.5ML NEB HHN SCH ×5 (00:41→16:21)
[2022-03-06] MEDS: ALBUTEROL (0.083%) 2.5MG/3ML NEB HHN SCH ×5 (00:41→16:20)
[2022-03-06] MEDS: CLONIDINE 0.1MG TABLET PO PRN (00:53)
[2022-03-06 04:00] VITALS: BP 157/90
[2022-03-06] MEDS: SODIUM CHLORIDE 0.9% 1,000 ML IV SCH (05:09)
[2022-03-06 08:00] VITALS: BP 141/84
[2022-03-06] MEDS: PROMETHAZINE/DEXTROMETHORPHAN 6.25-15MG/5ML BOTTLE 120ML PO PRN (09:39)
[2022-03-06] MEDS: THROAT LOZENGES-BENZOCAINE/MENTH/CETYLPYRD CL LOZENGES MM PRN (09:40)
[2022-03-06] MEDS: NICOTINE 21MG PATCH TD SCH (11:52)
[2022-03-06 11:55] VITALS: BP 150/72
[2022-03-06] MEDS ORDERED: MENT7.6L2 MM ×2 (14:13)
[2022-03-06] MEDS ORDERED: IPRA3AMP9 NEB ×2 (14:13)
[2022-03-06 16:04] VITALS: BP 152/86
[2022-03-06] MEDS: ENOXAPARIN 40MG/0.4ML SYR SUBCUT SCH (16:26)
[2022-03-06 16:35] VITALS: BP 148/66
[2022-03-06] MEDS ORDERED: NICO-789 TD (16:59)
== END 2022-03-06 19:00 | disposition home health service (06) | DRG 140 ==
LOC: ER 11:07 → 7EST 13:29 → EDBEDREQ 13:36 → EDBEDREQTM 13:36
PROVIDERS: ADMIT Internal Medicine; ATTEND Internal Medicine
DX: J44.1 Chronic obstructive pulmonary disease with (acute) exacerbation (principal); J96.00 Acute respiratory failure, unspecified whether with hypoxia or hypercapnia; N17.9 Acute kidney failure, unspecified; I50.9 Heart failure, unspecified; C18.9 Malignant neoplasm of colon, unspecified; I11.0 Hypertensive heart disease with heart failure; Y90.9 Presence of alcohol in blood, level not specified; E87.6 Hypokalemia; F10.10 Alcohol abuse, uncomplicated; F17.210 Nicotine dependence, cigarettes, uncomplicated; Z28.310 Unvaccinated for COVID-19; Z85.038 Personal history of other malignant neoplasm of large intestine; Z85.3 Personal history of malignant neoplasm of breast; Z92.21 Personal history of antineoplastic chemotherapy; Z88.0 Allergy status to penicillin; Z79.899 Other long term (current) drug therapy; Z79.1 Long term (current) use of non-steroidal anti-inflammatories (NSAID); Z79.51 Long term (current) use of inhaled steroids
CPT/HCPCS: 36415; 36600; 71045; 78582; 80048; 80053; 82375; 82805; 83880; 84484; 85025; 85379; 93005; 93970; 94640; 99291; A9558; J1650; J2920; J2930; J3475